=== PATIENT | male | born 1965 | race Two or more races ===

== ENCOUNTER 2019-04-07 13:03 | Inpatient (IN) | payer MEDICAID ==
[~2019-04-07] VITALS: Ht 167.6 cm; Wt 72.6 kg
[~2019-04-07 13:03] MED LIST: ACYC800T PO; ATOR40TA PO; BICT1TAB PO; CEPH-570 PO; ESTR1TAB17 PO; FOLI1TAB16 PO; FURO20TA4 PO; GABA-534 PO; LACT10SO PO; LEVO750T21 PO; LITH300T3 PO; LORA10TA7 PO; METF-440 PO; OMEP20TA5 PO; PANT40TA4 PO; PROP10TA10 PO; SPIR25TA6 PO; THIA100T13 PO; THIA50TA10 PO; TRAM50TA2 PO
--- NOTE | 2019-04-07 13:15 | NUR ---
PATIENT HERE FROM [facility] FOR N/V AND WEAKNESS. PATIENT IS AWAKE AND ALERT. DENIES PAIN. PLACED ON MONITOR.
[2019-04-07] MEDS ORDERED: IV NORMAL SALINE 500 ML BAG IV ONE (13:30)
[2019-04-07 13:52] LABS: BASOPHILS % (AUTO) 0.5 % (0.0-2.0); EOSINOPHILS # (AUTO) 0.1 K/uL (0.0-0.7); EOSINOPHILS % (AUTO) 3.1 % (0.0-7.0); HEMATOCRIT 30.2 % (36.7-47.1); HEMOGLOBIN 10.3 g/dL (12.5-16.3); LYMPHOCYTES # (AUTO) 0.5 K/uL (20.0-40.0); LYMPHOCYTES % (AUTO) 25.9 % (20.5-51.5); MEAN CORPUSCULAR HEMOGLOBIN 32.9 uug (23.8-33.4); MEAN CORPUSCULAR HGB CONC 34 g/dL (32.5-36.3); MEAN CORPUSCULAR VOLUME 96.2 fL (73.0-96.2); MONOCYTES # (AUTO) 0.3 K/uL (2.0-10.0); MONOCYTES % (AUTO) 13.9 % (0.0-11.0); NEUTROPHILS % (AUTO) 56.6 % (38.5-71.5); PLATELET COUNT (AUTO) 55 K/uL (152-348); RED BLOOD CELL COUNT(AUTO) 3.14 MIL/uL (4.06-5.63)
[2019-04-07 13:56] LABS: WHITE BLOOD COUNT (AUTO) 1.8 K/uL (3.6-10.2)
[2019-04-07 14:10] LABS: BILIRUBIN,DIRECT 0.4 mg/dL (0.0-0.2); TOTAL PROTEIN, SERUM 8.1 g/dL (6.4-8.2)
--- NOTE | 2019-04-07 15:24 | NUR ---
[facility]AGED [facility] FOR PANEL CALL. AWAITING CALLBACK. ATTEMPT 1.
[2019-04-07] MEDS ORDERED: LEVOFLOXACIN 750 MG/D5W 150 ML PIGGYBACK IV ONE (16:15)
[2019-04-07] MEDS ORDERED: VANCOMYCIN IV 1,000 MG in IV DEXTROSE 5% 250 ML IV ONE (16:15)
[2019-04-07] MEDS ORDERED: VANCOMYCIN IV 200 ML ONE (16:21)
[2019-04-07] MEDS ORDERED: LEVOFLOXACIN 750MG/D5W 150 ML IV ONE (16:21)
--- NOTE | 2019-04-07 16:30 | NUR ---
PATIENT AWARE OF PENDING ADMISSION TO HOSPITAL. REPORT GIVEN TO BELLE.
--- NOTE | 2019-04-07 16:31 | NUR ---
NO FURTHER VOMITING IN ER, ONLY ONE EMESIS AT ARRIVAL TO ER.
[2019-04-07 17:00] VITALS: BP 129/70
--- NOTE | 2019-04-07 17:23 | NUR ---
53 YEAR OLD MALE RECEIVED TO ROOM 321 FOR NEUTROPENIA ,PT IS [email or web address] LIGHT WITH IN REACH ,V/S ARE STABLE , CALLED FOR ADMISSION ORDERS
[2019-04-07] MEDS ORDERED: TRAMADOL HCL 50 MG TABLET PO PRN (19:45)
[2019-04-07] MEDS ORDERED: POTASSIUM CHLORIDE 20 MEQ TAB.PRT.SR PO ONE (19:45)
[2019-04-07] MEDS ORDERED: TEMAZEPAM 15 MG CAPSULE PO PRN (19:45)
[2019-04-07] MEDS ORDERED: ONDANSETRON 4 MG/2 ML VIAL IV PRN (19:45)
[2019-04-07] MEDS ORDERED: ALBUTEROL SULFATE 2.5 MG/3 ML NEBU NEB PRN (19:45)
[2019-04-07] MEDS ORDERED: ACETAMINOPHEN 325 MG TABLET PO PRN (19:45)
[2019-04-07] MEDS ORDERED: MORPHINE SULFATE 2 MG/1 ML DISP.SYRIN IV PRN (19:45)
--- NOTE | 2019-04-07 20:00 | NUR ---
RECEIVED PATIENT ASLEEP AND RESTING COMFORTABLY IN BED. ISOLATION PRECAUTIONS OBSERVED. NO COMPLAINTS OF PAIN OR ACUTE DISTRESS VERBALIZED. IV SITE PATENT AND INTACT. VS WNL AND PATIENT IS STABLE. CALL LIGHT AND PERSONAL ITEMS WITHIN REACH AT ALL TIMES. WILL CONTINUE TO MONITOR.
[2019-04-07 20:37] VITALS: BP 92/46
[2019-04-07] MEDS: FOLIC ACID/VITAMIN B COMP W-C TABLET PO SCH (20:51)
[2019-04-07] MEDS ORDERED: CEFTRIAXONE 1 G in IV DEXTROSE 5% 50 ML IV SCH (21:00)
[2019-04-07] MEDS: LITHIUM CARBONATE 300 MG CAPSULE PO SCH (21:00)
[2019-04-07] MEDS ORDERED: AZITHROMYCIN IV 500 MG in IV DEXTROSE 5% 250 ML IV SCH (22:00)
--- NOTE | 2019-04-07 22:00 | NUR ---
NOTIFIED OF LACTIC ACID RESULTS.
[2019-04-07 22:23] LABS: THYROID STIMULATING HORMONE 4.762 mIU/mL (0.358-3.740)
[2019-04-08 04:41] VITALS: BP 112/68
--- NOTE | 2019-04-08 06:00 | NUR ---
PATIENT RESTED COMFORTABLY THROUGHOUT NIGHT WITH NO COMPLAINTS OF PAIN OR ACUTE DISTRESS. ISOLATION PRECAUTIONS OBSERVED AT ALL TIMES. ALL PRESCRIBED ANTIBIOTICS AND MEDICATIONS PROVIDED ORDERED AND TOLERATED WELL WITH NO ADVERSE EFFECTS. ALL SAFETY AND FALL PRECAUTION MEASURES IN PLACE. BED IN LOWEST POSITION WITH BRAKE APPLIED. 2 SIDE RAILS UP AND IN LOCKED POSITION. CALL LIGHT AND PERSONAL ITEMS WITHIN REACH AT ALL TIMES.
[2019-04-08] MEDS: PANTOPRAZOLE SODIUM 40 MG TABLET.DR PO SCH (06:01)
[2019-04-08 07:21] LABS: BILIRUBIN,TOTAL 0.9 mg/dL (0.2-1.0); CREATININE 0.8 mg/dL (0.6-1.3); MAGNESIUM 1.8 mg/dL (1.8-2.4); PHOSPHOROUS 2.3 mg/dL (2.5-4.9); POTASSIUM 3.3 mmol/L (3.5-5.1); TOTAL PROTEIN, SERUM 7.4 g/dL (6.4-8.2)
[2019-04-08 07:24] LABS: BASOPHILS % (AUTO) 0.3 % (0.0-2.0); EOSINOPHILS # (AUTO) 0.1 K/uL (0.0-0.7); EOSINOPHILS % (AUTO) 2.9 % (0.0-7.0); HEMATOCRIT 28.6 % (36.7-47.1); HEMOGLOBIN 9.7 g/dL (12.5-16.3); LYMPHOCYTES # (AUTO) 0.5 K/uL (20.0-40.0); LYMPHOCYTES % (AUTO) 28.3 % (20.5-51.5); MEAN CORPUSCULAR HEMOGLOBIN 32.9 uug (23.8-33.4); MEAN CORPUSCULAR HGB CONC 34 g/dL (32.5-36.3); MEAN CORPUSCULAR VOLUME 97.2 fL (73.0-96.2); MONOCYTES # (AUTO) 0.3 K/uL (2.0-10.0); MONOCYTES % (AUTO) 13.8 % (0.0-11.0); NEUTROPHILS % (AUTO) 54.7 % (38.5-71.5); PLATELET COUNT (AUTO) 63 K/uL (152-348); RED BLOOD CELL COUNT(AUTO) 2.94 MIL/uL (4.06-5.63)
[2019-04-08 07:45] LABS: WHITE BLOOD COUNT (AUTO) 1.9 K/uL (3.6-10.2)
[2019-04-08] MEDS: LACTULOSE 20 G/30 ML LIQUID UDC PO SCH (08:06)
[2019-04-08] MEDS: ESTRADIOL 1 MG TABLET PO SCH (08:06)
[2019-04-08] MEDS: FOLIC ACID/VITAMIN B COMP W-C TABLET PO SCH (08:06)
[2019-04-08] MEDS: SPIRONOLACTONE 25 MG TABLET PO SCH ×2 (08:07→16:10)
[2019-04-08] MEDS: GABAPENTIN 300 MG CAPSULE PO SCH ×3 (08:07→16:10)
[2019-04-08] MEDS: THIAMINE HCL 100 MG TABLET PO SCH (08:07)
[2019-04-08] MEDS: FOLIC ACID 1 MG TABLET PO SCH (08:07)
[2019-04-08] MEDS: PROPRANOLOL HCL 10 MG TABLET PO SCH ×2 (08:07→21:16)
[2019-04-08] MEDS: FUROSEMIDE 20 MG TABLET PO SCH (08:07)
[2019-04-08] MEDS: ACYCLOVIR 200 MG CAPSULE PO SCH (08:07)
[2019-04-08] MEDS ORDERED: Medication Not On Formulary EA (Lactulose (Duphalac) 30 ML) PO SCH (09:00)
[2019-04-08] MEDS: POTASSIUM PHOSPHATE MM 7.5 MMOL in IV DEXTROSE 5% 100 ML IV SCH ×2 (10:02→11:45)
[2019-04-08 10:27] LABS: BASOPHILS % (MANUAL) 2 % (0-2); EOSINOPHILS % (MANUAL) 2 % (0-8); LYMPHOCYTES % (MANUAL) 31 % (20-40); MONOCYTES % (MANUAL) 7 % (2-10); NEUTROPHILS % (MANUAL) 58 % (42-75)
[2019-04-08 11:55] VITALS: BP 99/54
[2019-04-08 15:20] VITALS: BP 99/54
[2019-04-08 20:27] VITALS: BP 126/64
[2019-04-08] MEDS: LEVOFLOXACIN 500 MG TABLET PO SCH (21:15)
[2019-04-08] MEDS: CEphaleXIN 500 MG CAPSULE PO SCH (21:15)
[2019-04-08] MEDS: BIKTARVY PO SCH (21:15)
[2019-04-08] MEDS: LITHIUM CARBONATE 300 MG CAPSULE PO SCH (21:15)
[2019-04-09 04:00] VITALS: BP 99/56
[2019-04-09] MEDS: CEphaleXIN 500 MG CAPSULE PO SCH ×3 (06:00→21:35)
[2019-04-09] MEDS: PANTOPRAZOLE SODIUM 40 MG TABLET.DR PO SCH (06:16)
--- NOTE | 2019-04-09 06:18 | NUR ---
PATIENT ASLEEP IN BED. PATIENT NPO FOR CTA THIS AM. PATIENT KEPT NPO SINCE MIDNIGHT ORDERED FOR TEST. CONSENT SIGNED AND PLACED IN CHART. VSS. DENIES PAIN. CALL LIGHT IN REACH. ALL NEEDS ATTENDED. WILL CONTINUE TO MONITOR AND ASSESS.
[2019-04-09 06:26] LABS: BASOPHILS % (AUTO) 0.2 % (0.0-2.0); EOSINOPHILS # (AUTO) 0.1 K/uL (0.0-0.7); EOSINOPHILS % (AUTO) 2.9 % (0.0-7.0); HEMATOCRIT 32.7 % (36.7-47.1); LYMPHOCYTES # (AUTO) 0.6 K/uL (20.0-40.0); LYMPHOCYTES % (AUTO) 23.2 % (20.5-51.5); MEAN CORPUSCULAR HEMOGLOBIN 32.6 uug (23.8-33.4); MEAN CORPUSCULAR HGB CONC 34 g/dL (32.5-36.3); MEAN CORPUSCULAR VOLUME 96.9 fL (73.0-96.2); MONOCYTES # (AUTO) 0.3 K/uL (2.0-10.0); MONOCYTES % (AUTO) 10.3 % (0.0-11.0); NEUTROPHILS # (AUTO) 1.7 K/uL (1.8-8.9); NEUTROPHILS % (AUTO) 63.4 % (38.5-71.5); PLATELET COUNT (AUTO) 72 K/uL (152-348); RED BLOOD CELL COUNT(AUTO) 3.37 MIL/uL (4.06-5.63); WHITE BLOOD COUNT (AUTO) 2.7 K/uL (3.6-10.2)
[2019-04-09 06:39] LABS: BILIRUBIN,TOTAL 1.2 mg/dL (0.2-1.0); CREATININE 0.9 mg/dL (0.6-1.3); MAGNESIUM 1.7 mg/dL (1.8-2.4); PHOSPHOROUS 3.2 mg/dL (2.5-4.9); POTASSIUM 3.2 mmol/L (3.5-5.1); TOTAL PROTEIN, SERUM 8.2 g/dL (6.4-8.2)
[2019-04-09] MEDS: GABAPENTIN 300 MG CAPSULE PO SCH ×3 (09:00→19:11)
--- NOTE | 2019-04-09 09:00 | NUR ---
AM MEDS HELD UNTIL AFTER CTA COMPLETE NPO FOR RADIOLOGY
[2019-04-09] MEDS ORDERED: IV NORMAL SALINE 250 ML IV ONE (09:30)
[2019-04-09] MEDS ORDERED: IOHEXOL 350 100 ML INFUS..BTL ONE (09:30)
[2019-04-09 11:20] VITALS: BP 117/68
[2019-04-09] MEDS: BIKTARVY PO SCH (13:00)
[2019-04-09] MEDS: FOLIC ACID 1 MG TABLET PO SCH (13:00)
[2019-04-09] MEDS: LACTULOSE 20 G/30 ML LIQUID UDC PO SCH (13:00)
[2019-04-09] MEDS: SPIRONOLACTONE 25 MG TABLET PO SCH ×2 (13:00→19:11)
[2019-04-09] MEDS: ESTRADIOL 1 MG TABLET PO SCH (13:00)
[2019-04-09] MEDS: PROPRANOLOL HCL 10 MG TABLET PO SCH ×2 (13:00→21:11)
[2019-04-09] MEDS: ACYCLOVIR 200 MG CAPSULE PO SCH (13:00)
[2019-04-09] MEDS: THIAMINE HCL 100 MG TABLET PO SCH (13:00)
[2019-04-09] MEDS: FUROSEMIDE 20 MG TABLET PO SCH (13:00)
[2019-04-09] MEDS: FOLIC ACID/VITAMIN B COMP W-C TABLET PO SCH (13:00)
[2019-04-09] MEDS ORDERED: MAGNESIUM OXIDE 400 MG TABLET PO ONE (13:45)
[2019-04-09] MEDS ORDERED: POTASSIUM CHLORIDE 20 MEQ TAB.PRT.SR PO ONE (13:45)
[2019-04-09] MEDS: CYANOCOBALAMIN 1000 MCG/ML VIAL IM SCH (15:32)
[2019-04-09 15:40] VITALS: BP 122/77
[2019-04-09] MEDS: LEVOFLOXACIN 500 MG TABLET PO SCH (20:00)
[2019-04-09 20:24] VITALS: BP 111/67
--- NOTE | 2019-04-09 20:30 | NUR ---
Med Surg Nursing Note: Lying in bed a/o x2 Hungarian speaking only c/o being weak. On reverse Isolation. Denies of N/V or pain. Side rails up Call light within reach.
[2019-04-09] MEDS ORDERED: MIRALAX 17 GM POWD.PACK PO SCH (21:15)
[2019-04-09] MEDS: LITHIUM CARBONATE 300 MG CAPSULE PO SCH (21:17)
[2019-04-10] MEDS: PANTOPRAZOLE SODIUM 40 MG TABLET.DR PO SCH (06:02)
[2019-04-10] MEDS: CEphaleXIN 500 MG CAPSULE PO SCH (06:02)
--- NOTE | 2019-04-10 06:19 | NUR ---
Nurse's Note: Remains Lying in bed Denies of any any distress. took am meds . Side rails up Call Light within reach. Bed alarm on.
[2019-04-10 06:31] VITALS: BP 113/68
[2019-04-10 06:54] LABS: BASOPHILS % (AUTO) 0.3 % (0.0-2.0); EOSINOPHILS # (AUTO) 0.1 K/uL (0.0-0.7); EOSINOPHILS % (AUTO) 2.9 % (0.0-7.0); HEMATOCRIT 34.7 % (36.7-47.1); HEMOGLOBIN 11.6 g/dL (12.5-16.3); LYMPHOCYTES # (AUTO) 0.9 K/uL (20.0-40.0); LYMPHOCYTES % (AUTO) 23.9 % (20.5-51.5); MEAN CORPUSCULAR HEMOGLOBIN 32.5 uug (23.8-33.4); MEAN CORPUSCULAR HGB CONC 34 g/dL (32.5-36.3); MONOCYTES # (AUTO) 0.4 K/uL (2.0-10.0); MONOCYTES % (AUTO) 9.6 % (0.0-11.0); NEUTROPHILS # (AUTO) 2.4 K/uL (1.8-8.9); NEUTROPHILS % (AUTO) 63.3 % (38.5-71.5); PLATELET COUNT (AUTO) 79 K/uL (152-348); RED BLOOD CELL COUNT(AUTO) 3.57 MIL/uL (4.06-5.63); WHITE BLOOD COUNT (AUTO) 3.9 K/uL (3.6-10.2)
[2019-04-10 07:12] LABS: BILIRUBIN,TOTAL 1.4 mg/dL (0.2-1.0); CREATININE 0.9 mg/dL (0.6-1.3); MAGNESIUM 1.9 mg/dL (1.8-2.4); PHOSPHOROUS 3.1 mg/dL (2.5-4.9); POTASSIUM 3.6 mmol/L (3.5-5.1); TOTAL PROTEIN, SERUM 8.4 g/dL (6.4-8.2)
[2019-04-10 08:23] LABS: BAND % (MANUAL) 3 % (0-10); BASOPHILS % (MANUAL) 1 % (0-2); EOSINOPHILS % (MANUAL) 3 % (0-8); LYMPHOCYTES % (MANUAL) 25 % (20-40); MONOCYTES % (MANUAL) 8 % (2-10); NEUTROPHILS % (MANUAL) 60 % (42-75)
[2019-04-10] MEDS: SPIRONOLACTONE 25 MG TABLET PO SCH (09:20)
[2019-04-10] MEDS: PROPRANOLOL HCL 10 MG TABLET PO SCH (09:20)
[2019-04-10] MEDS: FUROSEMIDE 20 MG TABLET PO SCH (09:20)
[2019-04-10] MEDS: GABAPENTIN 300 MG CAPSULE PO SCH (09:20)
[2019-04-10] MEDS: FOLIC ACID/VITAMIN B COMP W-C TABLET PO SCH (09:20)
[2019-04-10] MEDS: ACYCLOVIR 200 MG CAPSULE PO SCH (09:20)
[2019-04-10] MEDS: THIAMINE HCL 100 MG TABLET PO SCH (09:20)
[2019-04-10] MEDS: FOLIC ACID 1 MG TABLET PO SCH (09:20)
[2019-04-10] MEDS: LACTULOSE 20 G/30 ML LIQUID UDC PO SCH (09:21)
[2019-04-10] MEDS: CYANOCOBALAMIN 1000 MCG/ML VIAL IM SCH (09:21)
[2019-04-10] MEDS: ESTRADIOL 1 MG TABLET PO SCH (09:23)
[2019-04-10] MEDS: BIKTARVY PO SCH (09:24)
[2019-04-10 11:24] VITALS: BP 106/52
--- NOTE | 2019-04-10 11:35 | NUR ---
Patient refusal of pneumonia vaccine. Taught education regarding risks of pneumonia. Patient verbalized understanding. Leoncio Quinn RN
[2019-04-10] MEDS ORDERED: CEPH500C2 PO (12:15)
[2019-04-10] MEDS ORDERED: LEVO500T2 PO (12:15)
--- NOTE | 2019-04-10 12:40 | NUR ---
Patient preparation for the discharge. Taxi voucher provided by roundhouse supervisor. Discontinued IV site. Clean, intact dressing. Removed ID band. All discharge instruction given per MD. Prescription explanation and follow up care instruction as well. Patient verbalized understanding.
--- NOTE | 2019-04-10 13:18 | NUR ---
Patient discharged to home. Sent all belongings. Provided assistance to taxi. Put seat belt on patient. Voucher given to certified driver examiner. Leoncio Quinn RN
== END 2019-04-10 13:20 | DRG 720 ==
LOC: ER 13:03 → MEDSURG3 16:28
PROVIDERS: ADMIT Internal Medicine; ATTEND Internal Medicine
DX: A41.9 Sepsis, unspecified organism (principal); E43 Unspecified severe protein-calorie malnutrition; D61.818 Other pancytopenia; J18.9 Pneumonia, unspecified organism; E11.42 Type 2 diabetes mellitus with diabetic polyneuropathy; E11.51 Type 2 diabetes mellitus with diabetic peripheral angiopathy without gangrene; K76.6 Portal hypertension; K74.60 Unspecified cirrhosis of liver; E86.0 Dehydration; F31.9 Bipolar disorder, unspecified; F64.9 Gender identity disorder, unspecified; E78.5 Hyperlipidemia, unspecified; I87.8 Other specified disorders of veins; K21.9 Gastro-esophageal reflux disease without esophagitis; L03.116 Cellulitis of left lower limb; L03.115 Cellulitis of right lower limb; Z79.890 Hormone replacement therapy; Z79.899 Other long term (current) drug therapy; K56.41 Fecal impaction; E53.8 Deficiency of other specified B group vitamins; Z68.25 Body mass index [BMI] 25.0-25.9, adult; I10 Essential (primary) hypertension; E87.6 Hypokalemia; Z79.84 Long term (current) use of oral hypoglycemic drugs
CPT/HCPCS: 36415; 70030-TC; 71045; 74021; 76700; 83605; 83690; 83735; 84100; 84443; 85025; 85730; 87040; 93005; 97116; 97530; A4663; G0378; J0456; J0696; J1956; J3370; J3420; J3490; J7030; J7050; J7060; Q9967